=== PATIENT | male | born 1965 | race African-American/Black ===

== ENCOUNTER 2018-03-07 14:08 | Emergency (ER) | payer OTHER ==
[~2018-03-07] VITALS: Ht 167.6 cm; Wt 86.2 kg
[2018-03-07 14:57] LABS: HEMATOCRIT 38.9 % (42.0-52.0); HEMOGLOBIN 12.9 gm/dL (14.0-18.0); MCH 29.5 pg (26.0-34.0); MCHC 33.1 g/dL (28.0-37.0); MCV 89.2 fL (80.0-100.0); RBC 4.36 mil/uL (4.50-6.00); RDW 13.6 % (10.5-14.5); WBC 6.7 thou/uL (4.0-11.0)
[2018-03-07 15:03] LABS: CALCIUM 8.6 mg/dL (8.5-10.1); POTASSIUM 3.4 mmol/L (3.5-5.1)
[2018-03-07 15:09] LABS: ALBUMIN 3.4 g/dL (3.4-5.0); TOTAL BILIRUBIN 0.1 mg/dL (<0.1-1.0); TOTAL PROTEIN 7.6 g/dL (6.4-8.2)
[2018-03-07] MEDS ORDERED: HYDROCHLOROTHIA25 M2 PO (15:17)
[2018-03-07] MEDS ORDERED: MORPHINE SULFAT15 M3 PO (15:23)
[2018-03-07 15:40] VITALS: BP 127/90
== END 2018-03-07 15:41 | disposition home or self-care (01) ==
LOC: ER 14:08
PROVIDERS: Emergency Medicine
DX: M54.5 Low back pain (principal); M54.2 Cervicalgia; V79.19XA Passenger on bus injured in collision with other motor vehicles in nontraffic accident, initial encounter; Y93.89 Activity, other specified; Y92.89 Other specified places as the place of occurrence of the external cause; Y99.8 Other external cause status

== ENCOUNTER 2020-08-17 07:11 | Emergency (ER) | payer OTHER ==
[~2020-08-17] VITALS: Ht 167.6 cm; Wt 99.8 kg
[~2020-08-17 07:11] MED LIST: HYDROCHLOROTHIA25 M2 PO; MORPHINE SULFAT15 M3 PO
[2020-08-17 07:18] VITALS: BP 111/60
[2020-08-17] MEDS ORDERED: NAPROSYN500 MG PO (07:47)
[2020-08-17] MEDS ORDERED: TYLENOL325 M1 PO (07:47)
[2020-08-17] MEDS ORDERED: DIAZEPAM 5 MG5 M1 PO (07:47)
[2020-08-17] MEDS ORDERED: AMLODIPINE BESY10 MG PO (07:49)
[2020-08-17] MEDS ORDERED: XARELTO20 MG PO (07:49)
[2020-08-17] MEDS ORDERED: ATORVASTATIN CA20 MG PO (07:50)
== END 2020-08-17 08:15 | disposition home or self-care (01) ==
LOC: ER 07:11
DX: M54.5 Low back pain (principal); I10 Essential (primary) hypertension; Z79.899 Other long term (current) drug therapy

== ENCOUNTER 2020-12-02 22:15 | Inpatient (IN) | payer OTHER ==
[~2020-12-02] VITALS: Ht 167.6 cm; Wt 101.6 kg
[~2020-12-02 22:15] MED LIST changes: +AMLODIPINE BESY10 MG PO; +ATORVASTATIN CA20 MG PO; +DIAZEPAM 5 MG5 M1 PO; +NAPROSYN500 MG PO; +TYLENOL325 M1 PO; +XARELTO20 MG PO
[2020-12-02 22:29] VITALS: BP 132/80
[2020-12-02 23:23] LABS: ABSOLUTE NEUTROPHILS 10.2 thou/uL (1.4-8.2); BASOPHILS 1.1 % (0.0-2.0); EOSINOPHILS 0.6 % (0.0-3.0); HEMATOCRIT 34.5 % (42.0-52.0); HEMOGLOBIN 10.8 gm/dL (14.0-18.0); LYMPHOCYTES 17.4 % (24.0-44.0); MCH 27.1 pg (26.0-34.0); MCHC 31.4 g/dL (28.0-37.0); MCV 86.3 fL (80.0-100.0); MONOCYTES 8.3 % (1.0-8.0); PLATELET COUNT 434 thou/uL (150-400); POLYS 72.6 % (36.0-66.0); RBC 3.99 mil/uL (4.50-6.00); RDW 15.6 % (10.5-14.5); WBC 14.1 thou/uL (4.0-11.0)
[2020-12-02 23:24] LABS: CALCIUM 8.7 mg/dL (8.5-10.1); CREATININE 1.2 mg/dL (0.7-1.3); POTASSIUM 3.2 mmol/L (3.5-5.1)
[2020-12-02 23:27] LABS: APTT 24.8 Seconds (24.5-32.8); D-DIMER 0.27 ug/mLFEU (0.19-0.50); INR 0.98; PROTIME 10.7 Seconds (10.5-12.1)
[2020-12-03 00:52] LABS: URINE BILIRUBIN NEGATIVE (Negative); URINE BLOOD NEGATIVE (Negative); URINE CLARITY CLEAR; URINE COLOR YELLOW; URINE GLUCOSE-RANDOM* NEGATIVE (Negative); URINE KETONES NEGATIVE (Negative); URINE LEUKOCYTES-REFLEX NEGATIVE (Negative); URINE NITRITE-REFLEX NEGATIVE (Negative); URINE PROTEIN (DIPSTICK) NEGATIVE (Negative); URINE UROBILINOGEN 0.2 E.U./dl (0.2-1.0)
[2020-12-03 02:28] VITALS: BP 118/80
[2020-12-03 02:48] VITALS: BP 118/80
[2020-12-03 03:23] VITALS: BP 127/74
--- NOTE | 2020-12-03 04:06 | NUR ---
PT ARRIVED FROM THE ER THIS AM @0300 A&OX4 ADMISSION DONE AND PT ORIENTED TO THE UNIT. IV INTACT AND FLUIDS INFUSING. RT FOOT SWELLING NOTED ELEVATED EXT. PT STARTED HAS BEEN HAVING THIS PAIN FOR 2 DAYS. HYDROCODONE GIVEN. UP WITH SBA. URINAL BY BEDSIDE. FALL PREC IN PLACE. PT ON RA. CLEAR LUNGS SOUNDS, DENIES N/V. CALL LIGHT AT REACH AND WILL CONT TO MONITOR.
[2020-12-03 07:41] VITALS: BP 129/85
--- NOTE | 2020-12-03 11:35 | NUR ---
ASSESSMENT: CM REVIEWED CHART AND SPOKE WITH PATIENT. PT IS ALERT AND ORIENTED X4. PT WAS ADMITTED DUE TO POSSIBLE RIGHT LOWER EXTREMITY CELLULITIS VS GOUT. PT IS CURRENTLY ON IV ANBX. PT REPORTS LIVING IN A HOUSE WITH HIS FAMILY. PT STATES HAVING ABOUT 9 STEPS WITH A HANRAIL TO ENTER THE HOME AND ABOUT 5-6 STEPS WITH HANDRAILS HE HAS TO USE ONCE INSIDE. PT IS NORMALLY FULLY INDEPENDENT WITH ADLS AND AMBULATION. PT ALSO WORKS. PT STATES HE NORMALLY SEES DR. BOND WITH ANY MEDICAL PROBLEMS. PT REPORTS NO HX OF HH OR SNF. CM DISCUSSED ROLE. PT DOES NOT ANTICIPATE HAVING ANY NEEDS FROM CM PRIOR TO DISCHARGING. CM WILL CONTINUE TO FOLLOW TO ASSIST NEEDED.
--- NOTE | 2020-12-03 13:27 | NUR ---
ASSUMED PT CARE THIS AM. PT VSS, A&OX4. PATIENT COMPLAINS OF PAIN IN THE RIGHT FOOT THAT RESPONDS WELL TO MEDS GIVEN PER EMAR. PATIENT USING A URINAL AND STANDBY ASSIST TO THE BATHROOM. IV PATENT, SALINE LOCKED NOW. PATIENT IS ON ROOM AIR. NO COMPLAINTS OF NUMBNESS, TINGLING, OR NAUSA. CALL LIGHT IS WITHIN REACH.
[2020-12-03 15:59] VITALS: BP 142/102
[2020-12-03 19:56] VITALS: BP 127/83
--- NOTE | 2020-12-04 04:23 | NUR ---
ASSESSED AT START OF SHIFT. PT A&OX4. RATES EXT PAIN 6/10 STATES HE FEELS MUCH BETTER. EVENING MEDS GIVEN AND SOLUMEDROL GIVEN VIA IV. PT UP WITH SBA, URINAL BY BEDSIDE. LOWER EXT ELEVATED. FALL PREC IN PLACE AND CALL LIGHT AT REACH WILL CONT TO MONITOR.
[2020-12-04 06:13] LABS: ABSOLUTE NEUTROPHILS 16.8 thou/uL (1.4-8.2); BASOPHILS 0.1 % (0.0-2.0); HEMATOCRIT 33.7 % (42.0-52.0); HEMOGLOBIN 10.8 gm/dL (14.0-18.0); LYMPHOCYTES 5.8 % (24.0-44.0); MCH 27.7 pg (26.0-34.0); MCHC 31.9 g/dL (28.0-37.0); MCV 86.9 fL (80.0-100.0); MONOCYTES 1.7 % (1.0-8.0); PLATELET COUNT 419 thou/uL (150-400); POLYS 92.4 % (36.0-66.0); RBC 3.88 mil/uL (4.50-6.00); RDW 15.9 % (10.5-14.5); WBC 18.2 thou/uL (4.0-11.0)
[2020-12-04 06:31] LABS: CALCIUM 8.9 mg/dL (8.5-10.1); CREATININE 0.9 mg/dL (0.7-1.3); MAGNESIUM 1.5 mg/dL (1.8-2.4); POTASSIUM 3.3 mmol/L (3.5-5.1)
[2020-12-04 07:00] VITALS: BP 143/89
[2020-12-04] MEDS ORDERED: PROTONIX 20 MG20 M1 PO (10:45)
[2020-12-04] MEDS ORDERED: LISINOPRIL10 MG PO (10:46)
[2020-12-04] MEDS ORDERED: MEDROL DOSPAK21 TA1 PO (10:46)
[2020-12-04 11:36] VITALS: BP 143/89
--- NOTE | 2020-12-04 11:45 | NUR ---
CARE TEAM INDICATED THAT PT IS TO BE SEEN BY [employer] THIS DAY AND IS THEN MEDICALLY STABLE TO DC HOME. PT IS TO DC HOME TO SELF CARE. NO OTHER CM INTERVENTION INDICATED. CASE CLOSED.
--- NOTE | 2020-12-04 12:08 | NUR ---
Nutrition: RD reviewed diet related to gout per consult. Materials provided and questions answered. Pt to D/C following RD visit.
== END 2020-12-04 12:58 | disposition home or self-care (01) | DRG 554 ==
LOC: ER 22:15 → 4W 12-03 02:11 → EROBS 12-03 02:11 → 4W 12-03 02:48
PROVIDERS: Emergency Medicine; Nurse Practitioner; ADMIT Internal Medicine; ATTEND Internal Medicine
DX: M10.9 Gout, unspecified (principal); L03.115 Cellulitis of right lower limb; E87.1 Hypo-osmolality and hyponatremia; E87.6 Hypokalemia; I10 Essential (primary) hypertension; E78.5 Hyperlipidemia, unspecified; Z79.899 Other long term (current) drug therapy; Z79.01 Long term (current) use of anticoagulants; Z86.711 Personal history of pulmonary embolism; Z86.16 Personal history of COVID-19; Z87.891 Personal history of nicotine dependence
CPT/HCPCS: 10040

== ENCOUNTER 2020-12-28 16:49 | Emergency (ER) | payer OTHER ==
[~2020-12-28] VITALS: Ht 167.6 cm; Wt 101.6 kg
[~2020-12-28 16:49] MED LIST changes: +LISINOPRIL10 MG PO; +MEDROL DOSPAK21 TA1 PO; +PROTONIX 20 MG20 M1 PO
[2020-12-28] MEDS ORDERED: LISINOPRIL10 MG PO (17:00)
[2020-12-28] MEDS ORDERED: ALLOPURINOL 10100 M3 PO (17:01)
[2020-12-28] MEDS ORDERED: PREDNISONE 20 M20 M1 PO (17:01)
[2020-12-28] MEDS ORDERED: NAPROSYN500 M1 PO (17:02)
[2020-12-28 18:08] LABS: HEMATOCRIT 32.4 % (42.0-52.0); WBC 8.3 thou/uL (4.0-11.0)
[2020-12-28 18:12] LABS: HEMOGLOBIN 10.2 gm/dL (14.0-18.0); MCH 27.2 pg (26.0-34.0); MCHC 31.4 g/dL (28.0-37.0); MCV 86.5 fL (80.0-100.0); PLATELET COUNT 330 thou/uL (150-400); RBC 3.75 mil/uL (4.50-6.00); RDW 17.2 % (10.5-14.5)
[2020-12-28 18:13] LABS: ANION GAP 11 mmol/L (7-16); BUN 6 mg/dL (7-18); CALCIUM 8.3 mg/dL (8.5-10.1); CHLORIDE 103 mmol/L (98-107); CO2 28 mmol/L (21-32); GLUCOSE 85 mg/dL (74-106); POTASSIUM 3.1 mmol/L (3.5-5.1); SODIUM 142 mmol/L (136-145)
[2020-12-28 18:24] LABS: ALBUMIN 3.2 g/dL (3.4-5.0); LIPASE 70 U/L (73-393); SGOT 38 U/L (15-37); SGPT 40 U/L (16-63); TOTAL BILIRUBIN 0.3 mg/dL (0.2-1.0); TOTAL PROTEIN 7.8 g/dL (6.4-8.2); TROPONIN-I <0.06 ng/mL (<0.06)
[2020-12-28 18:27] LABS: ABSOLUTE NEUTROPHILS 4.7 thou/uL (1.4-8.2)
[2020-12-28 18:28] LABS: ANISOCYTOSIS 1+
[2020-12-28 19:27] LABS: URINE BILIRUBIN NEGATIVE (Negative); URINE BLOOD NEGATIVE (Negative); URINE CLARITY CLEAR; URINE COLOR YELLOW; URINE GLUCOSE-RANDOM* NEGATIVE (Negative); URINE KETONES NEGATIVE (Negative); URINE LEUKOCYTES-REFLEX NEGATIVE (Negative); URINE NITRITE-REFLEX NEGATIVE (Negative); URINE PROTEIN (DIPSTICK) NEGATIVE (Negative); URINE SPECIFIC GRAVITY <= 1.005 (1.005-1.035); URINE UROBILINOGEN 0.2 E.U./dl (0.2-1.0)
[2020-12-28] MEDS ORDERED: POTASSIUM20 PO (19:34)
[2020-12-28] MEDS ORDERED: LOPERAMIDE 2 MG2 M1 PO (19:34)
[2020-12-28] MEDS ORDERED: ZOFRAN ODT4 MG PO (19:34)
[2020-12-28 19:48] VITALS: BP 178/101
== END 2020-12-28 19:51 | disposition home or self-care (01) ==
LOC: ER 16:49
PROVIDERS: Physician Assistant
DX: R10.9 Unspecified abdominal pain (principal); Z20.822 Contact with and (suspected) exposure to COVID-19; R11.2 Nausea with vomiting, unspecified; R19.7 Diarrhea, unspecified; I10 Essential (primary) hypertension; Z79.899 Other long term (current) drug therapy

== ENCOUNTER → 2021-01-29 | Outpatient (CLI) | payer OTHER ==
[~2021-01-29] MED LIST changes: +ALLOPURINOL 10100 M3 PO; +LOPERAMIDE 2 MG2 M1 PO; +NAPROSYN500 M1 PO; +POTASSIUM20 PO; +PREDNISONE 20 M20 M1 PO; +ZOFRAN ODT4 MG PO
[2021-01-29 12:17] LABS: BASOPHILS 0.6 % (0.0-2.0); EOSINOPHILS 1.1 % (0.0-3.0); HEMATOCRIT 33.8 % (42.0-52.0); HEMOGLOBIN 10.7 gm/dL (14.0-18.0); LYMPHOCYTES 23.8 % (24.0-44.0); MCH 27.3 pg (26.0-34.0); MCHC 31.7 g/dL (28.0-37.0); MCV 86.3 fL (80.0-100.0); MONOCYTES 8.9 % (1.0-8.0); PLATELET COUNT 346 thou/uL (150-400); POLYS 65.6 % (36.0-66.0); RBC 3.92 mil/uL (4.50-6.00); RDW 17.1 % (10.5-14.5); WBC 10.7 thou/uL (4.0-11.0)
[2021-01-29 12:31] LABS: ALBUMIN 3.3 g/dL (3.4-5.0); ANION GAP 9 mmol/L (7-16); BUN 12 mg/dL (7-18); CALCIUM 8.8 mg/dL (8.5-10.1); CHLORIDE 100 mmol/L (98-107); CHOLESTEROL 175 mg/dL (<200); CO2 27 mmol/L (21-32); GLUCOSE 104 mg/dL (74-106); HDL CHOLESTEROL 63 mg/dL (>40); LDL CHOLESTEROL 95 mg/dL (<100); POTASSIUM 4.1 mmol/L (3.5-5.1); SGOT 31 U/L (15-37); SGPT 24 U/L (30-65); SODIUM 136 mmol/L (136-145); TC:HDL 2.8 Ratio (Not establshd); TOTAL BILIRUBIN 0.4 mg/dL (0.2-1.0); TOTAL PROTEIN 7.9 g/dL (6.4-8.2); TRIGLYCERIDE 85 mg/dL (<150); URIC ACID* 5.3 mg/dL (3.5-7.2); VLDL 17 mg/dL (<40)
[2021-01-30 10:09] LABS: ANTI-DNA SCREEN <1 IU/mL (0-9); ANTI-RNP <0.2 AI (0.0-0.9)
== END ==
LOC: LAB 11:16
PROVIDERS: ATTEND Nurse Practitioner
DX: I10 Essential (primary) hypertension (principal); M10.9 Gout, unspecified; R76.8 Other specified abnormal immunological findings in serum

== ENCOUNTER 2021-04-23 07:09 | Emergency (ER) | payer OTHER ==
[~2021-04-23] VITALS: Ht 167.6 cm; Wt 101.6 kg
[2021-04-23 07:38] LABS: ABSOLUTE NEUTROPHILS 7.3 thou/uL (1.4-8.2); BASOPHILS 0.7 % (0.0-2.0); EOSINOPHILS 1.6 % (0.0-3.0); HEMATOCRIT 33.8 % (42.0-52.0); HEMOGLOBIN 10.8 gm/dL (14.0-18.0); LYMPHOCYTES 17.5 % (24.0-44.0); MCH 28.3 pg (26.0-34.0); MCHC 31.8 g/dL (28.0-37.0); MCV 88.9 fL (80.0-100.0); MONOCYTES 6.7 % (1.0-8.0); PLATELET COUNT 375 thou/uL (150-400); POLYS 73.5 % (36.0-66.0); RBC 3.81 mil/uL (4.50-6.00); RDW 18.9 % (10.5-14.5)
[2021-04-23 07:42] LABS: URINE BILIRUBIN NEGATIVE (Negative); URINE BLOOD NEGATIVE (Negative); URINE CLARITY CLEAR; URINE COLOR YELLOW; URINE GLUCOSE-RANDOM* NEGATIVE (Negative); URINE KETONES NEGATIVE (Negative); URINE LEUKOCYTES-REFLEX NEGATIVE (Negative); URINE NITRITE-REFLEX NEGATIVE (Negative); URINE PROTEIN (DIPSTICK) NEGATIVE (Negative); URINE SPECIFIC GRAVITY 1.015 (1.005-1.035); URINE UROBILINOGEN 0.2 E.U./dl (0.2-1.0)
[2021-04-23 07:45] LABS: CALCIUM 8.6 mg/dL (8.5-10.1); CREATININE 1.2 mg/dL (0.7-1.3); POTASSIUM 3.9 mmol/L (3.5-5.1)
[2021-04-23 07:50] LABS: ALBUMIN 3.1 g/dL (3.4-5.0); TOTAL BILIRUBIN 0.4 mg/dL (0.2-1.0); TOTAL PROTEIN 7.7 g/dL (6.4-8.2)
[2021-04-23] MEDS ORDERED: ZOFRAN ODT4 MG PO (07:56)
[2021-04-23] MEDS ORDERED: NAPROSYN500 MG PO ×2 (07:56→07:58)
[2021-04-23 08:00] VITALS: BP 148/94
[2021-04-23 08:48] LABS: ANISOCYTOSIS 2+
== END 2021-04-23 08:23 | disposition home or self-care (01) ==
LOC: ER 07:09
PROVIDERS: Emergency Medicine
DX: R10.32 Left lower quadrant pain (principal); I10 Essential (primary) hypertension; Z86.16 Personal history of COVID-19; Z79.891 Long term (current) use of opiate analgesic; Z79.899 Other long term (current) drug therapy

== ENCOUNTER → 2021-04-30 | Outpatient (CLI) | payer OTHER | LOC: LAB 11:52 | PROVIDERS: ATTEND Nurse Practitioner | DX: R35.1 Nocturia (principal); R76.8 Other specified abnormal immunological findings in serum ==

== ENCOUNTER → 2021-07-17 | Outpatient (CLI) | payer OTHER ==
[~2021-07-17] MED LIST changes: +MULTIVITAMINS1 EAC6 PO; +TRAMADOL 50 MG50 MG PO
== END ==
LOC: LAB 08:59
PROVIDERS: ATTEND Student in an Organized Health Care Education/Training Program
DX: Z01.812 Encounter for preprocedural laboratory examination (principal); Z20.822 Contact with and (suspected) exposure to COVID-19